=== PATIENT | male | born 1980 | race African-American/Black ===

== ENCOUNTER 2018-07-01 07:54 | Emergency (ER) | payer OTHER ==
[2018-07-01 08:00] VITALS: BP 115/75; PULSE 76; RESP 18; TEMP 97.8
--- NOTE | 2018-07-01 08:34 | ED ---
Head Injury HPI - General Chief complaint: Head Injury Stated complaint: head injury [facility] Time Seen by Provider: 07/01/18 08:03 Source: patient, RN notes reviewed, old records reviewed Mode of arrival: ambulatory Limitations: no limitations - History of Present Illness Initial comments: This Patient is a 37-year-old male presenting today with chief complaint of head injury. Patient ports that it has 45 this morning he was at work [employer]. Patient reports that he was backing up and stood up quickly, Patient reports that he hit his head on a clamp. He did cause a small laceration over the right aspect of the top of scalp. He reports the bleeding is stopped at this time. TMs up-to-date. Patient states that he had no loss of conscious. Denies any head or neck pain. He has no history of use blood thinners. - Related Data Allergies/Adverse reactions: Allergies Allergy/AdvReac Type Severity Reaction Status Date / Time No Known Allergies Allergy Verified 07/01/18 07:58 Review of Systems ROS Statement: Those systems with pertinent positive or pertinent negative responses have been documented in the HPI. ROS Other: All systems not noted in ROS Statement are negative. Past Medical History Past Medical History: No Reported History History of Any Multi-Drug Resistant Organisms: None Reported Past Surgical History: Appendectomy Past Psychological History: No Psychological Hx Reported Smoking Status: Never smoker Past Alcohol Use History: None Reported Past Drug Use History: None Reported General Exam - General Exam Comments Initial Comments: Well appearing 37 year old male, no distress. Limitations: no limitations General appearance: alert, in no apparent distress Head exam: Present: atraumatic, normocephalic, normal inspection Eye exam: Present: normal appearance, PERRL, EOMI. Absent: scleral icterus, conjunctival injection, periorbital swelling ENT exam: Present: normal exam, mucous membranes moist Neck exam: Present: normal inspection. Absent: tenderness, meningismus, lymphadenopathy Respiratory exam: Present: normal lung sounds bilaterally. Absent: respiratory distress, wheezes, rales, rhonchi, stridor Cardiovascular Exam: Present: regular rate, normal rhythm, normal heart sounds. Absent: systolic murmur, diastolic murmur, rubs, gallop, clicks GI/Abdominal exam: Present: soft, normal bowel sounds. Absent: distended, tenderness, guarding, rebound, rigid Extremities exam: Present: normal inspection, full ROM, normal capillary refill. Absent: tenderness, pedal edema, joint swelling, calf tenderness Back exam: Present: normal inspection Neurological exam: Present: alert, oriented X3, CN II-XII intact Psychiatric exam: Present: normal affect, normal mood Skin exam: Present: warm, dry, intact, normal color. Absent: rash Course Vital Signs 07/01/18 07:58 Temperature 97.8 F Pulse Rate 76 Respiratory 18 Rate Blood Pressure 115/75 O2 Sat by Pulse 99 Oximetry Medical Decision Making - Medical Decision Making 37-year-old male presents today with head injury. Patient was up walking and backed up and has had pain. He did have a small laceration. Bleeding at this time. Patient has no neurological deficits. The injury occurred 3 hours ago. Discussed risk and benefit of CAT scan. Patient reports he would rather he wants. He is alert and oriented. Appears in acute distress. He is on any blood thinners. Discusses Procrit. Discussed discussed return parameters. Patient is to treatment plan will comply. Return parameters were discussed. Disposition Clinical Impression: Minor head injury Disposition: HOME SELF-CARE Condition: Good Instructions: Head Injury (ED) Additional Instructions: Patient advised to follow-up with primary care physician. There is any vomiting , dizziness, or severe headache return to emergency department for reevaluation. Is patient prescribed a controlled substance at d/c from ED?: No Referrals: None,Stated [Primary Care Provider] - 1-2 days Jazmin Yo MD [STAFF PHYSICIAN] - 1-2 days Time of Disposition: 08:33
== END 2018-07-01 08:45 | disposition home or self-care (01) ==
LOC: EDBD → MERGE 07:54 → EC 07:54
DX: S09.90XA Unspecified injury of head, initial encounter (principal); W22.8XXA Striking against or struck by other objects, initial encounter; Y99.0 Civilian activity done for income or pay
CPT/HCPCS: 99283

== ENCOUNTER 2018-12-11 04:10 | Emergency (ER) | payer OTHER ==
[2018-12-11 04:21] VITALS: TEMP 98.4
[2018-12-11] MEDS: HYDROcodone/APAP 5-325MG 1 EACH TAB PO STA (05:01)
--- NOTE | 2018-12-11 05:29 | XR ---
EXAM: XR Chest, 2 Views CLINICAL HISTORY: ITS.REASON XR Reason: cough TECHNIQUE: Frontal and lateral views of the chest. COMPARISON: No relevant prior studies available. FINDINGS: Lungs: Unremarkable. No consolidation. Pleural space: Unremarkable. No pneumothorax. Heart: Unremarkable. No cardiomegaly. Mediastinum: Unremarkable. Bones/joints: Unremarkable. IMPRESSION: No acute cardiopulmonary findings.
--- NOTE | 2018-12-11 06:54 | ED ---
URI HPI - General Chief Complaint: Upper Respiratory Infection Stated Complaint: SOB Time Seen by Provider: 12/11/18 04:27 Source: patient, family Mode of arrival: ambulatory Limitations: no limitations - History of Present Illness Initial Comments: This patient is a 37-year-old man who presents to be evaluated for fever, chills , cough, and myalgias. The patient had been seen along with family members at [facility], couple of days ago. He states that family members were diagnosed with influenza, and although they did not check him he was diagnosed with influenza. The patient presents for concern that he may have developed pneumonia. He denies purulent sputum. He denies dyspnea. MD Complaint: fever, cough, other (myalgias) -: days(s) Quality: aching Consistency: constant Improves With: nothing Context: sick contacts - Related Data Previous Rx's Medication Instructions Recorded Hydrocodone/Acetaminophen [[place] 1 each PO Q6HR PRN #20 tab 12/11/18 5-325] Allergies Allergy/AdvReac Type Severity Reaction Status Date / Time No Known Allergies Allergy Verified 12/11/18 04:21 Review of Systems ROS Statement: Those systems with pertinent positive or pertinent negative responses have been documented in the HPI. ROS Other: All systems not noted in ROS Statement are negative. Constitutional: Reports: fever, chills. Denies: weakness ENT: Reports: congestion Respiratory: Reports: cough. Denies: dyspnea, wheezes, hemoptysis Cardiovascular: Denies: chest pain, dyspnea on exertion, orthopnea, edema Gastrointestinal: Denies: abdominal pain Genitourinary: Denies: dysuria Musculoskeletal: Reports: myalgia. Denies: back pain Skin: Denies: rash Neurological: Reports: headache. Denies: weakness, numbness Past Medical History Past Medical History: No Reported History History of Any Multi-Drug Resistant Organisms: None Reported Past Surgical History: Appendectomy Past Psychological History: No Psychological Hx Reported Smoking Status: Former smoker Past Alcohol Use History: None Reported Past Drug Use History: None Reported General Exam Limitations: no limitations General appearance: alert, in no apparent distress Head exam: Present: atraumatic, normocephalic Eye exam: Present: normal appearance. Absent: scleral icterus, conjunctival injection ENT exam: Present: normal oropharynx Neck exam: Present: normal inspection, full ROM Respiratory exam: Present: normal lung sounds bilaterally. Absent: respiratory distress, wheezes, rales, rhonchi, stridor, accessory muscle use, decreased breath sounds Cardiovascular Exam: Present: regular rate, normal rhythm, normal heart sounds. Absent: systolic murmur, diastolic murmur, rubs, gallop GI/Abdominal exam: Present: soft. Absent: distended, tenderness, guarding, rebound Neurological exam: Present: alert, normal gait Skin exam: Present: warm, dry, intact, normal color. Absent: rash Course Vital Signs 12/11/18 12/11/18 04:16 07:07 Temperature 98.4 F Pulse Rate 69 67 Respiratory 20 16 Rate Blood Pressure 120/73 127/89 O2 Sat by Pulse 99 99 Oximetry Medical Decision Making - Lab Data Lab Results 12/11/18 Range/Units 05:00 Influenza Type A RNA Detected H (Not Detectd) Influenza Type B (PCR) Not Detected (Not Detectd) Disposition Clinical Impression: Influenza Disposition: HOME SELF-CARE Condition: Good Instructions (If sedation given, give patient instructions): Influenza (ED) Prescriptions: Hydrocodone/Acetaminophen [[place] 5-325] 1 each PO Q6HR PRN #20 tab PRN Reason: Pain Is patient prescribed a controlled substance at d/c from ED?: Yes When asked, does pt state using other controlled substances?: No If prescribed controlled substance>3 days was MAPS reviewed?: Prescribed <3 Days If opioid is for acute pain is fill amount 7 days or less?: Yes If Rx opioid, was Start Talking consent form obtained?: Yes Referrals: None,Stated [Primary Care Provider] - 1-2 days
[2018-12-11 07:08] VITALS: BP 127/89; PULSE 67; RESP 16
== END 2018-12-11 07:07 | disposition home or self-care (01) ==
LOC: EC 04:10
DX: J11.1 Influenza due to unidentified influenza virus with other respiratory manifestations (principal); Z87.891 Personal history of nicotine dependence
CPT/HCPCS: 71046; 87502; 99285

== ENCOUNTER 2018-12-20 23:14 | Emergency (ER) | payer OTHER ==
[2018-12-20 23:22] VITALS: RESP 18
[2018-12-21] MEDS ORDERED: SODIUM CHLORIDE 0.9% 500 ML 500 ML IV STA (00:32)
[2018-12-21] MEDS ORDERED: KETOROLAC 30 MG/ML 1 ML VIAL IVP STA (00:32)
[2018-12-21 00:59] LABS: Basophils % (A) 1 %; Eosinophils # (A) 0.2 k/uL (0-0.7); Eosinophils % (A) 3 %; HCT 46.7 % (39.0-53.0); Lymphocytes # (A) 2.5 k/uL (1.0-4.8); Lymphocytes % (A) 40 %; MCH 28.4 pg (25.0-35.0); MCHC 32.1 g/dL (31.0-37.0); MCV 88.5 fL (80.0-100.0); Monocytes # (A) 0.5 k/uL (0-1.0); Monocytes % (A) 9 %; Neutrophils # (A) 2.7 k/uL (1.3-7.7); Neutrophils % (A) 44 %; Platelet Count 274 k/uL (150-450); RBC 5.27 m/uL (4.30-5.90); RDW 12.9 % (11.5-15.5); WBC 6.1 k/uL (3.8-10.6)
[2018-12-21 01:10] LABS: ALT 35 U/L (21-72); AST 24 U/L (17-59); Albumin 3.4 g/dL (3.5-5.0); Alkaline Phosphatase 93 U/L (38-126); Anion Gap 4 mmol/L; Blood Urea Nitrogen 16 mg/dL (9-20); Calcium 9.2 mg/dL (8.4-10.2); Carbon Dioxide 28 mmol/L (22-30); Chloride 107 mmol/L (98-107); Glucose 89 mg/dL (74-99); Potassium 4.2 mmol/L (3.5-5.1); Sodium 139 mmol/L (137-145); Total Bilirubin 0.5 mg/dL (0.2-1.3); Total Protein 6.1 g/dL (6.3-8.2)
[2018-12-21 01:12] LABS: D-Dimer 0.4 mg/L FEU (<0.60); INR 0.9 (<1.2); Prothrombin Time 9.8 sec (9.0-12.0)
--- NOTE | 2018-12-21 01:15 | XR ---
EXAM: XR Chest, 2 Views CLINICAL HISTORY: ITS.REASON XR Reason: Chest Pain TECHNIQUE: Frontal and lateral views of the chest. COMPARISON: No relevant prior studies available. FINDINGS: Lungs: Unremarkable. No consolidation. Pleural space: Unremarkable. No pneumothorax. Heart: Unremarkable. No cardiomegaly. Mediastinum: Unremarkable. Bones/joints: No acute fracture. IMPRESSION: No acute findings.
[2018-12-21 01:17] LABS: Creatine Kinase 121 U/L (55-170)
[2018-12-21 01:30] LABS: Creatine Kinase MB 0.5 ng/mL (0.0-2.4); Troponin I <0.012 ng/mL (0.000-0.034)
[2018-12-21] MEDS ORDERED: ACET/COD 300 MG/30 MG STARTER PACK 6 TAB BTL PO STA (01:42)
--- NOTE | 2018-12-21 01:42 | ED ---
Back Pain HPI - General Source: patient Limitations: no limitations <Tiny Chaudhari - Last Filed: 12/21/18 02:06> <Leah Evans - Last Filed: 12/21/18 04:39> - General Chief Complaint: Back Pain/Injury Stated Complaint: Back Pain Time Seen by Provider: 12/21/18 00:02 - History of Present Illness Initial Comments: 37-year-old male patient presents to the emergency department today for evaluation of upper back pain. Patient states that the pain has been getting increasingly worse over the last 2 days. Patient states the pain worsens whenever he attempts to take a deep breath or moves his upper body. He denies any injury to the back. Patient states he did have similar symptoms 2 weeks ago and is diagnosed with influenza. Patient states he has been taking ibuprofen at home but is not helping his pain. He denies any chest pain, shortness of breath, abdominal pain, nausea, vomiting. States he has been having intermittent dizziness with this. Patient denies any recent rash, fever, chills, diarrhea, constipation, back pain, numbness, tingling, weakness, hematuria, dysuria, urinary urgency, urinary frequency, headache, visual changes , or any other complaints. (Tiny Chaudhari) - Related Data Home Medications Medication Instructions Recorded Confirmed Ibuprofen [Motrin] 800 mg PO TID PRN 12/20/18 12/20/18 Previous Rx's Medication Instructions Recorded Cyclobenzaprine [Flexeril] 10 mg PO TID #15 tab 12/21/18 Allergies Allergy/AdvReac Type Severity Reaction Status Date / Time No Known Allergies Allergy Verified 12/20/18 23:38 Review of Systems ROS Other: All systems not noted in ROS Statement are negative. <Tiny Chaudhari - Last Filed: 12/21/18 02:06> ROS Other: All systems not noted in ROS Statement are negative. <Leah Evans - Last Filed: 12/21/18 04:39> ROS Statement: Those systems with pertinent positive or pertinent negative responses have been documented in the HPI. Past Medical History Past Medical History: No Reported History History of Any Multi-Drug Resistant Organisms: None Reported Past Surgical History: Appendectomy Past Psychological History: No Psychological Hx Reported Smoking Status: Former smoker Past Alcohol Use History: None Reported Past Drug Use History: None Reported <Tiny Chaudhari - Last Filed: 12/21/18 02:06> General Exam Limitations: no limitations General appearance: alert, in no apparent distress, other (This is a well- developed, well-nourished adult male patient in no acute distress. Vital signs upon presentation are temperature 98.2F, pulse 76, respirations 18, blood pressure 140/73, pulse ox 100% on room air.) Eye exam: Present: normal appearance, PERRL, EOMI. Absent: scleral icterus, conjunctival injection, periorbital swelling ENT exam: Present: normal exam, normal oropharynx, mucous membranes moist Respiratory exam: Present: normal lung sounds bilaterally. Absent: respiratory distress, wheezes, rales, rhonchi, stridor Cardiovascular Exam: Present: regular rate, normal rhythm, normal heart sounds. Absent: systolic murmur, diastolic murmur, rubs, gallop, clicks GI/Abdominal exam: Present: soft, normal bowel sounds. Absent: distended, tenderness, guarding, rebound, rigid Back exam: Present: normal inspection, tenderness (Generalized upper back tenderness) Neurological exam: Present: alert, oriented X3, CN II-XII intact Psychiatric exam: Present: normal affect, normal mood Skin exam: Present: warm, dry, intact, normal color. Absent: rash <Tiny Chaudhari - Last Filed: 12/21/18 02:06> Vital Signs 12/20/18 12/21/18 23:19 02:42 Temperature 98.2 F 98.0 F Pulse Rate 76 74 Respiratory 18 18 Rate Blood Pressure 140/73 113/68 O2 Sat by Pulse 100 99 Oximetry Medical Decision Making - Lab Data Result diagrams: 12/21/18 00:40 12/21/18 00:40 - EKG Data -: EKG Interpreted by Ok - Radiology Data Radiology results: report reviewed, image reviewed <Tiny Chaudhari - Last Filed: 12/21/18 02:06> - Lab Data Result diagrams: 12/21/18 00:40 12/21/18 00:40 <Leah Evans - Last Filed: 12/21/18 04:39> - Medical Decision Making 37-year-old male patient presents to the emergency department today for evaluation of upper back pain. Physical examination did reveal generalized upper back tenderness. Patient reported increased pain with movement and deep breathing. Chest x-ray showed no acute cardiopulmonary process. EKG was obtained and showed normal sinus rhythm with no evidence of ST elevation, depression, or ectopy. D-dimer was negative. Vital signs stable. Is felt that patient's pain could be related to pleurisy status post viral influenza infection. He'll be discharged home with instructions to continue anti- inflammatory medications. He is instructed to perform coughing and deep breathing exercises. He will be given Flexeril the possibility of musculoskeletal pain. He is instructed to follow-up with his primary care physician for recheck in 1-2 days., He has been provided with [facility]. Return parameters discussed in detail. He verbalizes understanding and agrees with this plan. (Tiny Chaudhari) I was available for consultation in the emergency department. The history and physical exam were done by the midlevel provider. I was consulted for this patient's care. I reviewed the case with the midlevel provider and based on their presentation of the patient, I agree with the assessment, medical decision making and plan of care as documented. (Leah Evans) - Lab Data Lab Results 12/21/18 12/21/18 12/21/18 Range/Units 00:40 00:40 00:40 WBC 6.1 (3.8-10.6) k/uL RBC 5.27 (4.30-5.90) m/uL Hgb 15.0 (13.0-17.5) gm/dL Hct 46.7 (39.0-53.0) % MCV 88.5 (80.0-100.0) fL MCH 28.4 (25.0-35.0) pg MCHC 32.1 (31.0-37.0) g/dL RDW 12.9 (11.5-15.5) % Plt Count 274 (150-450) k/uL Neutrophils % 44 % Lymphocytes % 40 % Monocytes % 9 % Eosinophils % 3 % Basophils % 1 % Neutrophils # 2.7 (1.3-7.7) k/uL Lymphocytes # 2.5 (1.0-4.8) k/uL Monocytes # 0.5 (0-1.0) k/uL Eosinophils # 0.2 (0-0.7) k/uL Basophils # 0.0 (0-0.2) k/uL PT (9.0-12.0) sec INR (<1.2) APTT (22.0-30.0) sec D-Dimer (<0.60) mg/L FEU Sodium 139 (137-145) mmol/L Potassium 4.2 (3.5-5.1) mmol/L Chloride 107 (98-107) mmol/L Carbon Dioxide 28 (22-30) mmol/L Anion Gap 4 mmol/L BUN 16 (9-20) mg/dL Creatinine 0.95 (0.66-1.25) mg/dL Est GFR (CKD-EPI)AfAm >90 (>60 ml/min/1.73 sqM) Est GFR (CKD-EPI)NonAf >90 (>60 ml/min/1.73 sqM) Glucose 89 (74-99) mg/dL Calcium 9.2 (8.4-10.2) mg/dL Magnesium 2.0 (1.6-2.3) mg/dL Total Bilirubin 0.5 (0.2-1.3) mg/dL AST 24 (17-59) U/L ALT 35 (21-72) U/L Alkaline Phosphatase 93 (38-126) U/L Total Creatine Kinase 121 (55-170) U/L CK-MB (CK-2) 0.5 (0.0-2.4) ng/mL CK-MB (CK-2) Rel Index 0.4 Troponin I <0.012 (0.000-0.034) ng/mL Total Protein 6.1 L (6.3-8.2) g/dL Albumin 3.4 L (3.5-5.0) g/dL 12/21/18 Range/Units 00:40 WBC (3.8-10.6) k/uL RBC (4.30-5.90) m/uL Hgb (13.0-17.5) gm/dL Hct (39.0-53.0) % MCV (80.0-100.0) fL MCH (25.0-35.0) pg MCHC (31.0-37.0) g/dL RDW (11.5-15.5) % Plt Count (150-450) k/uL Neutrophils % % Lymphocytes % % Monocytes % % Eosinophils % % Basophils % % Neutrophils # (1.3-7.7) k/uL Lymphocytes # (1.0-4.8) k/uL Monocytes # (0-1.0) k/uL Eosinophils # (0-0.7) k/uL Basophils # (0-0.2) k/uL PT 9.8 (9.0-12.0) sec INR 0.9 (<1.2) APTT 24.0 (22.0-30.0) sec D-Dimer 0.40 (<0.60) mg/L FEU Sodium (137-145) mmol/L Potassium (3.5-5.1) mmol/L Chloride (98-107) mmol/L Carbon Dioxide (22-30) mmol/L Anion Gap mmol/L BUN (9-20) mg/dL Creatinine (0.66-1.25) mg/dL Est GFR (CKD-EPI)AfAm (>60 ml/min/1.73 sqM) Est GFR (CKD-EPI)NonAf (>60 ml/min/1.73 sqM) Glucose (74-99) mg/dL Calcium (8.4-10.2) mg/dL Magnesium (1.6-2.3) mg/dL Total Bilirubin (0.2-1.3) mg/dL AST (17-59) U/L ALT (21-72) U/L Alkaline Phosphatase (38-126) U/L Total Creatine Kinase (55-170) U/L CK-MB (CK-2) (0.0-2.4) ng/mL CK-MB (CK-2) Rel Index Troponin I (0.000-0.034) ng/mL Total Protein (6.3-8.2) g/dL Albumin (3.5-5.0) g/dL - EKG Data EKG Comments: EKG obtained at 0101 shows normal sinus rhythm with a ventricular rate of 69, OH interval 150, QRS duration 102, QT 376, QTc 402. No evidence of ST elevation or depression. (Tiny Chaudhari) - Radiology Data Two-view x-ray of the chest is obtained. Report was reviewed in its entirety. Impression by Dr. Austin shows no acute findings. (Bantle,Tiny M) Disposition Is patient prescribed a controlled substance at d/c from ED?: No Time of Disposition: 01:42 <Tiny Chaudhari M - Last Filed: 12/21/18 02:06> <Leah Evans - Last Filed: 12/21/18 04:39> Clinical Impression: Thoracic back pain, Pleurisy Disposition: HOME SELF-CARE Condition: Good Instructions (If sedation given, give patient instructions): Pleurisy (ED), Back Pain (ED) Additional Instructions: Take medication as directed. Follow up with your primary care physician for recheck in 1-2 days. Return to the emergency department for any new, worsening, or concerning symptoms. Prescriptions: Cyclobenzaprine [Flexeril] 10 mg PO TID #15 tab Referrals: [facility] [NON-STAFF] - 1-2 days
[2018-12-21] MEDS ORDERED: CYCLOBENZAPRINE 10MG STARTER 3 TAB BTL PO STA (01:48)
[2018-12-21 02:46] VITALS: BP 113/68; PULSE 74; TEMP 98
== END 2018-12-21 02:42 | disposition home or self-care (01) ==
LOC: EC 23:14
DX: M54.6 Pain in thoracic spine (principal); R09.1 Pleurisy; R42 Dizziness and giddiness; Z87.891 Personal history of nicotine dependence
CPT/HCPCS: 36415; 93005; 85379; 80053; 82550; 82553; 83735; 84484; 85025; 85610; 85730; 71046; 99284; 96374; 96361 ×2; J1885